=== PATIENT | male | born 1945 | race Caucasian/White ===

== ENCOUNTER 2023-05-28 22:12 | Emergency (ER) | payer MEDICARE, OTHER ==
[~2023-05-28] VITALS: Ht 177.8 cm; Wt 85.9 kg
[~2023-05-28 22:12] MED LIST: NORCO 325 MG-51 TAB PO; ROBAXIN 75750 MG/TAB PO
[2023-05-28 22:22] VITALS: TEMP 97.8
[2023-05-28 23:59] VITALS: BP 126/65; PULSE 53
== END 2023-05-28 23:58 | disposition home or self-care (01) ==
LOC: COL.ER 22:12
DX: S01.411A Laceration without foreign body of right cheek and temporomandibular area, initial encounter (principal); Z23 Encounter for immunization; W01.110A Fall on same level from slipping, tripping and stumbling with subsequent striking against sharp glass, initial encounter; Y93.01 Activity, walking, marching and hiking; Y92.002 Bathroom of unspecified non-institutional (private) residence as the place of occurrence of the external cause